=== PATIENT | female | born 2000 | race Caucasian/White ===

== ENCOUNTER 2020-09-29 01:49 | Emergency (ER) | payer OTHER | END 2020-09-29 03:06 | disposition home or self-care (01) | LOC: ER1 01:49 | DX: F41.9 Anxiety disorder, unspecified (principal); F17.210 Nicotine dependence, cigarettes, uncomplicated | CPT/HCPCS: 99283 ==

== ENCOUNTER 2021-08-06 14:10 | Emergency (ER) | payer BC | END 2021-08-06 16:05 | disposition left against medical advice (07) | LOC: ER1 14:10 | DX: Z53.21 Procedure and treatment not carried out due to patient leaving prior to being seen by health care provider (principal) ==